=== PATIENT | male | born 1990 | race Hispanic/Latino ===

== ENCOUNTER 2022-05-30 12:22 | Emergency (ER) | payer SELFPAY ==
[~2022-05-30] VITALS: Ht 180.3 cm; Wt 90.7 kg
[2022-05-30] MEDS ORDERED: AZITHROMYCIN250 MG PO (12:50)
[2022-05-30] MEDS ORDERED: PREDNISONE20 MG PO (12:50)
[2022-05-30] MEDS ORDERED: VENTOLIN HFA18 GM INH (12:50)
== END 2022-05-30 12:57 | disposition home or self-care (01) ==
LOC: FSED 12:30
DX: R05.9 Cough, unspecified (principal); J40 Bronchitis, not specified as acute or chronic
CPT/HCPCS: 99282